=== PATIENT | female | born 1985 | race Caucasian/White ===

== ENCOUNTER 2024-01-23 10:18 | Emergency (ER) | payer OTHER, SELFPAY ==
[2024-01-23] VITALS (8 sets, daily range): BP systolic 178; BP diastolic 96; PULSE 44–55; TEMP 37.1; O2SAT 92–99; BMI 51.2
--- NOTE | 2024-01-23 10:38 | XR_ITS ---
The [address] [address] Patient Name: GREGORIO HESS MRN: [id number] date: 1985 Sex: F Assigned Patient Location: ER Current Patient Location: ED.MAIN Accession/Order Number: [id number] Exam Date: 01/23/2024 10:45 Report Date: 01/23/2024 11:49 At the request of: RADHA COOK Procedure: XR chest 1V EXAMINATION: XR chest 1V HISTORY: cp COMPARISON: 03/04/22. TECHNIQUE: ap port FINDINGS: LUNGS: No significant pulmonary parenchymal abnormalities. VASCULATURE: No increased pulmonary vasculature. PLEURA: No pneumothorax, effusion, or pleural thickening. CARDIAC: No cardiomegaly or cardiac silhouette abnormality. MEDIASTINUM: No visible mass or adenopathy. BONES: No fracture or visible bone lesion. OTHER: Negative. XR/XR chest 1V IMPRESSION: No acute cardiopulmonary process Electronically authenticated by: FRANCISCO HARO Date: 01/23/2024 11:49
--- NOTE | 2024-01-23 10:38 | ECG_ITS ---
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
--- NOTE | 2024-01-23 10:42 | ED.GENADUL1 ---
HPI HPI - General Adult General Chief complaint: Abdominal Pain Stated complaint: ABDOMINAL PAIN/BACK PAIN/CHEST PAIN Time Seen by Provider: 01/23/24 10:20 Source: patient Mode of arrival: walk-in Limitations: no limitations History of Present Illness HPI narrative: Patient presents ED complaining of Epigastric pain and burning in her chest. She says she feels like it is worse when she lays down and it is burning up from into her chest. She tried some Tums but it did not seem to work. Patient said she went to urgent care yesterday and tested for COVID and flu which were negative. She had maybe a little sinus pressure but no other congestion or cough. She has had her left ovary removed and her 2 system removed. She still has her gallbladder she still has her appendix. No fevers. She denies diarrhea or constipation. Related Data Home Medications ?Medication ?Instructions ?Recorded ?Confirmed clonazepam 1 mg tablet 0.5 mg PO BID 01/23/24 01/23/24 levothyroxine 50 mcg tablet 50 mcg PO DAILY 01/23/24 01/23/24 lumateperone 42 mg capsule 42 mg PO DAILY 01/23/24 01/23/24 (Caplyta) nebivolol 10 mg tablet (Bystolic) 10 mg PO DAILY 01/23/24 01/23/24 quetiapine 50 mg tablet 50 mg PO BID 01/23/24 01/23/24 Previous Rx's ?Medication ?Instructions ?Recorded pantoprazole 40 mg tablet,delayed 40 mg PO DAILY 2 weeks #14 tabs 01/23/24 release (Protonix) Allergies Allergy/AdvReac Type Severity Reaction Status Date / Time Penicillins Allergy Severe Hives Verified 01/23/24 10:23 Sulfa (Sulfonamide Allergy Severe Hives Verified 01/23/24 10:23 Antibiotics) Opioid HPI Opioid Management Most Recent Opioid Data: Last Pain Scale 8 01/23/24 11:23 Last ED Pain Assessment 01/23/24 10:40 Last MAR Pain Assessment 01/23/24 11:23 Review of Systems ROS Status of ROS 10 or more systems reviewed and unremarkable except as noted in history and below [facility] Medical History (Updated 01/23/24 @ 11:57 by Gavi Perdomo DO) Hypertension ?I10 - Essential (primary) hypertension (ICD-10) Surgical History (Updated 01/23/24 @ 10:38 by Francisco Tam) History of left oophorectomy ?Z90.721 - Acquired absence of ovaries, unilateral (ICD-10) Hx of section ?Z98.891 - History of uterine scar from previous surgery (ICD-10) Hx of carpal tunnel repair ?Z98.890 - Other specified postprocedural states (ICD-10) Hx of tonsillectomy ?Z90.89 - Acquired absence of other organs (ICD-10) Social History Little interest or pleasure in doing things: not at all Feeling down, depressed, or hopeless: not at all Exam Narrative Exam Narrative: Time Seen: [] Vital Signs: [Per nurse's notes.] General: [Alert] Skin: [Warm, dry, no rash.] Head: [Normocephalic, atraumatic.] Neck: [Supple, trachea midline.] Eye: [Pupils are equal, round and reactive to light, extraocular movements are intact, normal conjunctiva.] Ears, nose, mouth and throat: oral mucosa moist. Cardiovascular: [Regular rate and rhythm, no murmur.] Respiratory: [Lungs are clear to auscultation, respirations are non-labored, breath sounds are equal.] Chest wall: [No tenderness, no deformity.] Gastrointestinal: [Soft, Obesity,nontender, non distended, normal bowel sounds.] MSK: 5 out of 5 muscle strength x 4 extremities no calf pain or edema Lymphatics: [No lymphadenopathy.] Psychiatric: [Cooperative, appropriate mood & affect.] Neurological: [Alert and oriented to person, place, time, and situation, no focal neurological deficit observed.] Constitutional Vital Signs, click to edit/add: Last Vital Signs Temp 98.7 F 01/23/24 10:27 Pulse 55 L 01/23/24 10:27 Resp 16 01/23/24 10:27 BP 178/96 H 01/23/24 10:27 Pulse Ox 98 01/23/24 10:41 O2 Del Method Room Air 01/23/24 10:41 Course Vital Signs Vital signs: Vital Signs Temperature 98.7 F 01/23/24 10:27 Pulse Rate 55 L 01/23/24 10:27 Respiratory Rate 16 01/23/24 10:27 Blood Pressure 178/96 H 09/18/24 10:27 Pulse Oximetry 99 01/23/24 10:27 Oxygen Delivery Method Room Air 01/23/24 10:27 Temperature 98.7 F 01/23/24 10:27 Pulse Rate 55 L 01/23/24 10:27 Respiratory Rate 16 01/23/24 10:27 Blood Pressure 178/96 H 01/23/24 10:27 Pulse Oximetry 98 01/23/24 10:41 Oxygen Delivery Method Room Air 01/23/24 10:41 Medical Decision Making MDM Narrative Medical decision making narrative: Patient's labs are negative for acute. She is seen feeling better after the GI cocktail. That did seem to take care of her burning sensation. Patient will be placed on Protonix for home for the next 2 weeks. Follow-up with family doctor. I also did refer her to GI. If it is not getting better she may need an upper endoscopy. Patient instructed to return to ED if worsening symptoms, she is comfortable care plan for home. Differential Diagnosis Differential Diagnosis: GERD, angina, gastritis Lab Data Lab results reviewed: Yes I reviewed the patient's lab results Labs: Lab Results 01/23/24 Range/Units 10:50 WBC 9.2 (4.0-11.0) 10^3/uL RBC 5.55 H (4.20-5.40) 10^6/uL Hgb 16.2 H (12.0-16.0) g/dL Hct 49.5 H (36.0-48.0) % MCV 89.2 (81.0-99.0) fL MCH 29.2 (26.7-34.0) pg MCHC 32.7 (29.9-35.2) g/dL RDW 13.2 (11.0-15.0) % Plt Count 227 (150-450) 10^3/uL MPV 11.3 (9.5-13.5) fL Neut % (Auto) 76.3 H (43.0-75.0) % Lymph % (Auto) 16.5 L (20.5-60.0) % [place] % (Auto) 5.3 (1.7-12.0) % Eos % (Auto) 1.2 (0.9-7.0) % Baso % (Auto) 0.5 (0.2-2.0) % Neut # (Auto) 7.0 H (1.4-6.5) 10^3/uL Lymph # (Auto) 1.5 (1.2-3.8) 10^3/uL [place] # (Auto) 0.5 (0.3-0.8) 10^3/uL Eos # (Auto) 0.1 (0.0-0.7) 10^3/uL Baso # (Auto) 0.1 (0.0-0.1) 10^3/uL Abs Immat Gran (auto) 0.02 (0.00-0.03) 10^3/uL Imm/Tot Granulo (auto) 0.2 (0.0-0.5) % Sodium 140 (136-145) mmol/L Potassium 3.7 (3.5-5.1) mmol/L Chloride 102 (98-107) mmol/L Carbon Dioxide 32.6 H (21.0-32.0) mmol/L Anion Gap 9.1 BUN 9.0 (7.0-18.0) mg/dL Creatinine 0.91 (0.55-1.02) mg/dL Est GFR ( Amer) >60 (>=60) Est GFR (Non-Af Amer) >60 (>=60) BUN/Creatinine Ratio 9.9 Glucose 131 H (74-106) mg/dL Calcium 9.4 (8.5-10.1) mg/dL Total Bilirubin 0.8 (0.2-1.0) mg/dL AST 23 (15-37) U/L ALT 38 (14-59) U/L Alkaline Phosphatase 132 H (46-116) U/L Troponin I High Sens 7.6 (4.0-51.3) pg/mL Total Protein 8.0 (6.4-8.2) g/dL Albumin 3.8 (3.4-5.0) g/dL Globulin 4.2 g/dL Albumin/Globulin Ratio 0.9 Lipase 22.0 (16.0-77.0) U/L Imaging Data Chest x-ray: Radiologist's impression: ITS Impressions Chest X-Ray 01/23/24 10:38 IMPRESSION: No acute cardiopulmonary process Electronically authenticated by: FRANCISCO HARO Date: 01/23/2024 11:49 ECG Data Attestation: I personally reviewed and interpreted this ECG as follows: Interpretation: EKG INTERPRETATION Time: []1051 Rate: []47 Rhythm: _ []Sinus bradycardia ST segments: _ []No acute ST elevation or depression T waves: _ [] Ectopy: _ [] P wave/AZ interval: _ [] QRS interval: _ [] QT interval: _ [] Comparison: _ [] Comparison EKG date: [] Performed by: [self] Discharge Plan Discharge Chief Complaint: Abdominal Pain Clinical Impression: Chest pain due to GERD Patient Disposition: Home, Self-Care Time of Disposition Decision: 11:57 Condition: Good Mode of Transportation: Private Vehicle Prescriptions / Home Meds: New pantoprazole [Protonix] 40 mg tablet,delayed release (DR/EC) 40 mg PO DAILY 14 Days Qty: 14 0RF No Action clonazepam 1 mg tablet 0.5 mg PO BID Caplyta 42 mg capsule 42 mg PO DAILY nebivolol [Bystolic] 10 mg tablet 10 mg PO DAILY levothyroxine 50 mcg tablet 50 mcg PO DAILY quetiapine 50 mg tablet 50 mg PO BID Print Language: Ukrainian Instructions: Chest Pain (ED), GERD (Gastroesophageal Reflux Disease) (ED) Referrals: ROSHNI BOND [Physician] - 1 week ANGIE MCKEON [Primary Care Provider] - 1 week
[2024-01-23 11:08] LABS: Basophils Absolute Auto 0.1 10^3/uL (0.0-0.1); Basophils Percent Auto 0.5 % (0.2-2.0); Eosinophils Absolute Auto 0.1 10^3/uL (0.0-0.7); Eosinophils Percent Auto 1.2 % (0.9-7.0); Hematocrit 49.5 % (36.0-48.0); Hemoglobin 16.2 g/dL (12.0-16.0); Immature Granulocytes Abs Auto 0.02 10^3/uL (0.00-0.03); Immature Granulocytes Pct Auto 0.2 % (0.0-0.5); Lymphocytes Absolute Auto 1.5 10^3/uL (1.2-3.8); Lymphocytes Percent Auto 16.5 % (20.5-60.0); Mean Corpuscular HGB Conc 32.7 g/dL (29.9-35.2); Mean Corpuscular Hemoglobin 29.2 pg (26.7-34.0); Mean Corpuscular Volume 89.2 fL (81.0-99.0); Mean Platelet Volume 11.3 fL (9.5-13.5); Monocytes Absolute Auto 0.5 10^3/uL (0.3-0.8); Monocytes Percent Auto 5.3 % (1.7-12.0); Neutrophils Percent Auto 76.3 % (43.0-75.0); Platelet Count 227 10^3/uL (150-450); Red Blood Count 5.55 10^6/uL (4.20-5.40); Red Cell Distribution Width 13.2 % (11.0-15.0); White Blood Count 9.2 10^3/uL (4.0-11.0)
[2024-01-23] MEDS: KETOROLAC TROMETHAMINE 30 MG/ML VIAL 15 MG IVP (11:23)
[2024-01-23] MEDS: ONDANSETRON PF 4 MG/2 ML VIAL IV (11:23)
[2024-01-23] MEDS: 0.9 % SODIUM CHLORIDE 500 ML IV (11:24)
[2024-01-23] MEDS: lidocaine HCL 15 ML, MAG HYDROX/ALUMINUM HYD/SIMETH 30 ML, HYOSCYAMINE SULFATE 0.25 MG PO (11:29)
[2024-01-23 11:33] LABS: Alanine Aminotransferase 38 U/L (14-59); Albumin Globulin Ratio 0.9; Albumin Level 3.8 g/dL (3.4-5.0); Alkaline Phosphatase 132 U/L (46-116); Anion Gap 9.1; Aspartate Amino Transferase 23 U/L (15-37); BUN Creatinine Ratio 9.9; Bilirubin Total 0.8 mg/dL (0.2-1.0); Calcium 9.4 mg/dL (8.5-10.1); Carbon Dioxide 32.6 mmol/L (21.0-32.0); Chloride 102 mmol/L (98-107); Estimated GFR (African America >60 (>=60); Estimated GFR (Non-African Ame >60 (>=60); Globulin 4.2 g/dL; Glucose 131 mg/dL (74-106); Potassium 3.7 mmol/L (3.5-5.1); Sodium 140 mmol/L (136-145); Troponin I High Sensitivity 7.6 pg/mL (4.0-51.3)
== END 2024-01-23 12:38 | disposition home or self-care (01) ==
PROVIDERS: Emergency Provider Emergency Medicine; PCP Family Medicine
DX: R07.9 Chest pain, unspecified (principal); K21.9 Gastro-esophageal reflux disease without esophagitis; Z90.721 Acquired absence of ovaries, unilateral
CPT/HCPCS: 36415; 71045; 80053; 83690; 84484; 85025; 93005; 96374; 96375; 99285; J1885; J2405

== ENCOUNTER 2024-04-22 09:41 | Emergency (ER) | payer OTHER, SELFPAY ==
[2024-04-22 09:45] VITALS: BP 172/89; PULSE 91; TEMP 36.9; O2SAT 97; BMI 50.3
--- NOTE | 2024-04-22 09:59 | CT_ITS ---
The [address] [address] Patient Name: GREGORIO HESS MRN: [id number] date: 1985 Sex: F Assigned Patient Location: ER Current Patient Location: ER Accession/Order Number: [id number] Exam Date: 04/22/2024 10:27 Report Date: 04/22/2024 11:08 At the request of: TED SEVILLA Procedure: CT abdomen pelvis wo con EXAMINATION: CT abdomen pelvis wo con HISTORY: right flank pain, r/o stone COMPARISON: No relevant comparison available. TECHNIQUE: Axial, Coronal, and Sagittal images were created without IV contrast. Dose reduction techniques were achieved by using automated exposure control and/or adjustment of mA and/or kV according to patient size and/or use of iterative reconstruction technique. FINDINGS: LUNG BASES: No visible pulmonary or pleural disease. LIVER: No enlargement, atrophy, abnormal density, or significant focal lesion. BILIARY: No dilatation or calcification. PANCREAS: No lesion, fluid collection, ductal dilatation, or atrophy. SPLEEN: No enlargement or focal lesion. ADRENALS: No mass or enlargement. KIDNEYS: No mass, obstruction, or calcification. BOWEL/MESENTERY: No visible mass, obstruction, or bowel wall thickening. Normal appendix AORTA/VASCULAR: No aneurysm or dissection. RETROPERITONEUM: No mass or adenopathy. LYMPH NODES: No adenopathy. URINARY BLADDER: No visible focal wall thickening, lesion, or calculus. PELVIC ORGANS: No visible mass. Pelvic organs appropriate for patient age. ABDOMINAL WALL: No mass or hernia. BONES: No bony lesion or fracture. OTHER: Negative. CT/CT abdomen pelvis wo con IMPRESSION: No obstructive uropathy Electronically authenticated by: FRANCISCO HARO Date: 04/22/2024 11:08
--- NOTE | 2024-04-22 09:59 | ED.GENADUL1 ---
HPI HPI - General Adult General Chief complaint: Abdominal Pain Stated complaint: flank pain Time Seen by Provider: 04/22/24 09:43 Source: patient Mode of arrival: walk-in Limitations: no limitations History of Present Illness HPI narrative: 39-year-old female presents for right flank pain. She has had this for about a week. She had been seen at another hospital and was diagnosed with a UTI and finished the antibiotic. She still has the pain. She is never had a kidney stone before and has not had gross hematuria. No injury or unusual activity. The pain is moderate to severe and continuous. Related Data Home Medications ?Medication ?Instructions ?Recorded ?Confirmed clonazepam 1 mg tablet 0.5 mg PO BID 01/23/24 04/22/24 nebivolol 10 mg tablet (Bystolic) 10 mg PO DAILY 01/23/24 04/22/24 quetiapine 50 mg tablet 50 mg PO BID 01/23/24 04/22/24 Previous Rx's ?Medication ?Instructions ?Recorded acetaminophen 300 mg-codeine 30 mg 1 tab PO Q6H PRN pain 5 days #20 04/22/24 tablet tabs ibuprofen 800 mg tablet 800 mg PO Q8H PRN pain #20 tabs 04/22/24 methocarbamol 500 mg tablet 500 mg PO Q8H PRN pain #20 tabs 04/22/24 Allergies Allergy/AdvReac Type Severity Reaction Status Date / Time Penicillins Allergy Severe Hives Verified 04/22/24 09:49 Sulfa (Sulfonamide Allergy Severe Hives Verified 04/22/24 09:49 Antibiotics) Opioid HPI Opioid Management Most Recent Opioid Data: Last Pain Scale 8 01/23/24 11:23 01/23/24 Review of Systems ROS Narrative A ten point review of systems is negative except as noted above. PFSH PFSH Medical History (Updated 04/22/24 @ 11:22 by Mendoaz Gomez MD) Hypertension ?I10 - Essential (primary) hypertension (ICD-10) Surgical History (Updated 01/23/24 @ 10:38 by Miguel Tam) History of left oophorectomy ?Z90.721 - Acquired absence of ovaries, unilateral (ICD-10) Hx of section ?Z98.891 - History of uterine scar from previous surgery (ICD-10) Hx of carpal tunnel repair ?Z98.890 - Other specified postprocedural states (ICD-10) Hx of tonsillectomy ?Z90.89 - Acquired absence of other organs (ICD-10) Social History Little interest or pleasure in doing things: not at all Feeling down, depressed, or hopeless: not at all Exam Narrative Exam Narrative: Nurses note and vital signs reviewed and patient is not hypoxic. General: The patient appears well and in no apparent distress. Patient is resting comfortably on cart. Skin: Warm, dry, no pallor noted. There is no rash noted. Head: Normocephalic, atraumatic Eye: Normal conjunctiva, no drainage Ears, Nose, Mouth, and Throat: oral mucosa is moist. Nares patent. Cardiovascular: Regular Rate and Rhythm Respiratory: Patient is in no distress, no accessory muscle use, lungs are clear to auscultation, no wheezing, rales or rhonchi Back: non-tender, no CVA tenderness bilaterally to percussion. GI: Obese and nontender Musculoskeletal: The patient has no evidence of calf tenderness, no pitting edema, symmetrical pulses noted bilaterally Neurological: A&O, normal speech Psychiatric: Cooperative Constitutional Vital Signs, click to edit/add: Last Vital Signs Temp 98.5 F 04/22/24 09:45 Pulse 57 L 04/22/24 11:13 Resp 18 04/22/24 11:13 BP 168/92 H 04/22/24 11:13 Pulse Ox 96 04/22/24 11:13 O2 Del Method Room Air 04/22/24 11:13 Course Vital Signs Vital signs: Vital Signs Temperature 98.5 F 04/22/24 09:45 Pulse Rate 91 H 04/22/24 09:45 Respiratory Rate 18 04/22/24 09:45 Blood Pressure 172/89 H 04/22/24 09:45 Pulse Oximetry 97 04/22/24 09:45 Oxygen Delivery Method Room Air 04/22/24 09:45 Temperature 98.5 F 04/22/24 09:45 Pulse Rate 57 L 04/22/24 11:13 Respiratory Rate 18 04/22/24 11:13 Blood Pressure 168/92 H 04/22/24 11:13 Pulse Oximetry 96 04/22/24 11:13 Oxygen Delivery Method Room Air 04/22/24 11:13 Medical Decision Making MDM Narrative Medical decision making narrative: Urinalysis and CAT scan are negative. On her visit to another emergency department on April 16, 6 days ago, she had UTI and at that time a CAT scan showed some perinephric stranding. There was no stone at the time. I suspect that she has some residual pain from this recent infection. No evidence of infection now and should be treated symptomatically. Treatment diagnosis and follow-up were discussed with the patient. Differential Diagnosis Differential Diagnosis: UTI, pyelonephritis, kidney stone, muscle strain Lab Data Lab results reviewed: Yes I reviewed the patient's lab results Labs: Lab Results 04/22/24 Range/Units 09:50 Urine Color Lt. yellow (YELLOW) Urine Clarity Clear (CLEAR) Urine pH 7.0 (5.0-9.0) Ur Specific [place] >=1.030 A (1.005-1.025) Urine Protein Negative (NEG/TRACE) mg/dL Urine Glucose (UA) Negative (NEGATIVE) mg/dL Urine Ketones Negative (NEGATIVE) mg/dL Urine Occult Blood Negative (NEGATIVE) Urine Nitrite Negative (NEGATIVE) Urine Bilirubin Negative (NEGATIVE) Urine Urobilinogen 0.2 (0.2-1.0) EU/dL Ur Leukocyte Esterase Negative (NEGATIVE) Urine RBC 0-2 (0-2) #/HPF Urine WBC 0-2 A (NONE SEEN) #/HPF Ur Squamous Epith Cells Rare (NONE/RARE) #/LPF Urine Crystals None seen (None Seen) #/HPF Urine Bacteria Trace A (NONE SEEN) #/HPF Urine Casts None seen (NONE SEEN) #/LPF Urine Mucus None seen (NONE SEEN) Urine HCG, Qual Negative (NEGATIVE) Imaging Data CT scan - abdomen: Radiologist's impression: ITS Impressions Abdomen/Pelvis CT 04/22/24 09:59 IMPRESSION: No obstructive uropathy Electronically authenticated by: MIGUEL HARO Date: 04/22/2024 11:08 Discharge Plan Discharge Chief Complaint: Abdominal Pain Clinical Impression: Right flank pain Patient Disposition: Home, Self-Care Time of Disposition Decision: 11:22 Condition: Good Mode of Transportation: Private Vehicle Prescriptions / Home Meds: New acetaminophen-codeine 300-30 mg tablet 1 tab PO Q6H PRN (Reason: pain) 5 Days Qty: 20 0RF methocarbamol 500 mg tablet 500 mg PO Q8H PRN (Reason: pain) Qty: 20 0RF ibuprofen 800 mg tablet 800 mg PO Q8H PRN (Reason: pain) Qty: 20 0RF No Action clonazepam 1 mg tablet 0.5 mg PO BID nebivolol [Bystolic] 10 mg tablet 10 mg PO DAILY quetiapine 50 mg tablet 50 mg PO BID Print Language: Estonian Instructions: Flank Pain (ED) Referrals: ANGIE MCKEON [Primary Care Provider] - 1 week
[2024-04-22 10:08] LABS: HCG Qualitative Urine* NEGATIVE (NEGATIVE); Internal Control Within Normal Limits
[2024-04-22 10:10] LABS: Bilirubin Urine NEGATIVE (NEGATIVE); Blood Urine NEGATIVE (NEGATIVE); Clarity Urine CLEAR (CLEAR); Color Urine LT. YELLOW (YELLOW); Glucose Urine UA NEGATIVE (NEGATIVE); Ketones Urine NEGATIVE (NEGATIVE); Leukocyte Esterase Urine NEGATIVE (NEGATIVE); Nitrite Urine NEGATIVE (NEGATIVE); Protein Urine NEGATIVE (NEG/TRACE); Specific Gravity Urine >=1.030 (1.005-1.025); Urobilinogen Urine 0.2 EU/dL (0.2-1.0)
[2024-04-22 10:18] LABS: Bacteria Urine TRACE #/HPF (NONE SEEN); RBC Urine 0-2 #/HPF (0-2); WBC Urine 0-2 #/HPF (NONE SEEN)
[2024-04-22 10:19] LABS: Cast Seen? NONE SEEN #/LPF (NONE SEEN); Crystals Seen? None Seen #/HPF (None Seen); Mucus Urine NONE SEEN (NONE SEEN); Squamous Epithelial Cell Urine RARE #/LPF (NONE/RARE)
[2024-04-22 11:13] VITALS: BP 168/92; PULSE 57; O2SAT 96
== END 2024-04-22 11:26 | disposition home or self-care (01) ==
PROVIDERS: Emergency Provider Emergency Medicine; PCP Family Medicine
DX: R10.9 Unspecified abdominal pain (principal); Z87.440 Personal history of urinary (tract) infections
CPT/HCPCS: 74176; 81001; 84703; 99284